=== PATIENT | female | born 1990 | race Caucasian/White ===

== ENCOUNTER 2022-01-13 16:59 | Emergency (ER) | payer OTHER ==
[2022-01-13] MEDS: Aspirin 81 MG Tab.Chew PO ONE (17:34)
[2022-01-13 17:47] LABS: CHLORIDE,CL 101 mEq/L (98-106); ESTIMATED GFR 102 mL/min (>=60); SODIUM,NA 138 mEq/L (136-145)
== END 2022-01-13 18:13 | disposition home or self-care (01) ==
LOC: CC.ED 16:59
DX: R07.9 Chest pain, unspecified (principal); B34.9 Viral infection, unspecified; Z79.899 Other long term (current) drug therapy; Z20.822 Contact with and (suspected) exposure to COVID-19
CPT/HCPCS: 36415; 71046; 80053; 83735; 84484; 85025; 85379; 86140; 93005; 99284; 99285; A9270-GY; U0002